=== PATIENT | male | born 1935 | race Hispanic/Latino ===

== ENCOUNTER 2016-12-13 00:19 | Emergency (ER) | payer MEDICARE, OTHER ==
[~2016-12-13] VITALS: Ht 185.4 cm; Wt 82.0 kg
[2016-12-13 01:57] LABS: URINE BILIRUBIN - DIPSTICK NEGATIVE (NEGATIVE); URINE BLOOD DIPSTICK TRACE-INTACT (NEGATIVE); URINE CLARITY CLEAR; URINE COLOR YELLOW; URINE GLUCOSE - DIPSTICK NEGATIVE (NEGATIVE); URINE KETONE NEGATIVE (NEGATIVE); URINE LEUK ESTERASE NEGATIVE (NEGATIVE); URINE NITRITE - DIPSTICK NEGATIVE (Negative); URINE PROTEIN - DIPSTICK NEGATIVE (NEG-TRACE); URINE SPECIFIC GRAVITY <=1.005; URINE UROBILINOGEN - DIPSTICK 0.2 E.U./dL (0.2)
[2016-12-13 03:59] VITALS: BP 128/76
== END 2016-12-13 03:53 | disposition short-term general hospital (02) ==
LOC: ED 00:19
PROVIDERS: Emergency Medicine
PROC: 0HQ0XZZ Repair Scalp Skin, External Approach (ICD-10-PCS; principal; 2016-12-13)
DX: S06.5X0A Traumatic subdural hemorrhage without loss of consciousness, initial encounter (principal); S01.01XA Laceration without foreign body of scalp, initial encounter; W01.198A Fall on same level from slipping, tripping and stumbling with subsequent striking against other object, initial encounter; Y92.143 Cell of prison as the place of occurrence of the external cause

== ENCOUNTER 2018-10-01 03:53 | Inpatient (IN) | payer MEDICARE ==
[~2018-10-01] VITALS: Ht 185.4 cm; Wt 75.0 kg
[2018-10-01] VITALS (15 sets, daily range): BP systolic 133–163; BP diastolic 54–87
--- NOTE | 2018-10-01 04:00 | NUR ---
PT. TO ROOM 6 WITH C/O SOB THAT STARTED AT APPROX. 0200. O2 SAT ON RA 66%. SKIN DIAPHORETIC RESP. 36. HR 144. BP 225/123. MD AT BEDSIDE. BILATERAL LUNG BAEZA ARE RALES AND RHONCHI. 0405 RESP. THERAPIST AT BEDSIDE BI-PAP INITIATED. O2 SAT NOW INCREASING TO 95%. PT. APPEARS LESS ANXIOUS.
[2018-10-01 04:30] LABS: HEMOGLOBIN 17.1 g/dl (14.0-18.0); IMMATURE GRANULOCYTES 0.3 % (0.0-5.0); MEAN CORPUSCULAR HGB 31.3 pG CALC (26.0-32.0); MEAN CORPUSCULAR HGB CONC 33.5 g/L CALC (32.0-36.0); NEUT# 6.63 thou/uL (1.82-7.42); RED BLOOD COUNT 5.47 mill/uL (4.70-6.10); RED CELL DISTRI WIDTH 13.9 % (11.5-15.5)
[2018-10-01 04:35] LABS: MEAN CELL VOLUME 93.2 fL CALC (80.0-100.0)
[2018-10-01 04:37] LABS: ALBUMIN 4.4 g/dL (3.2-5.0); BILIRUBIN, TOTAL 0.8 mg/dL (0.0-1.4); CREATININE 1.4 mg/dL (0.7-1.3); POTASSIUM 3.8 mmol/l (3.5-5.1)
[2018-10-01 04:41] LABS: PROTHROMBIN TIME 10.3 SECONDS (9.0-12.5)
--- NOTE | 2018-10-01 05:00 | NUR ---
PT. STATES, " I AM FEELING MUCH BETTER NOW."
[2018-10-01 05:17] LABS: URINE BILIRUBIN - DIPSTICK NEGATIVE (NEGATIVE); URINE BLOOD DIPSTICK TRACE-LYSED (NEGATIVE); URINE COLOR YELLOW; URINE GLUCOSE - DIPSTICK NEGATIVE (NEGATIVE); URINE KETONE NEGATIVE (NEGATIVE); URINE LEUK ESTERASE NEGATIVE (NEGATIVE); URINE NITRITE - DIPSTICK NEGATIVE (Negative); URINE PH 5.5 (4.5-8.0); URINE PROTEIN - DIPSTICK 30 mg/dL (NEG-TRACE); URINE SPECIFIC GRAVITY >=1.030; URINE UROBILINOGEN - DIPSTICK 0.2 E.U./dL (0.2)
--- NOTE | 2018-10-01 05:24 | NUR ---
IV ABT. STARTED PER MD ORDER.
[2018-10-01 05:29] LABS: URINE BACTERIA FEW hpf; URINE COARSE GRANULAR CAST FEW lpf; URINE HYALINE CAST FEW lpf (NONE-RARE); URINE SQUAMOUS EPITHELIAL CELL FEW EPI/hpf (0-FEW)
--- NOTE | 2018-10-01 05:32 | NUR ---
SNACK STEWARD SHOWS 8 BEAT MD NAIMA AWARE.
--- NOTE | 2018-10-01 06:23 | NUR ---
MD IN ROOM TO DISCUSS CLINICAL FINDINGS WITH PT. AND TO ALSO INFORM HIM OF ADMISSION, VERBALIZED UNDERSTANDING.
--- NOTE | 2018-10-01 06:30 | NUR ---
BP 92/52 MD AWARE, BP RECHECKED 89/56. MD ORDERED NITRPASTE REMOVED, AND PIBAP REMOVED. PT. PLACED IN [place]. BP RECHECKED 128/60.
--- NOTE | 2018-10-01 06:57 | NUR ---
Admission Note Report Given to: JULIA COMBS Transported by: Wheelchair X Stretcher Transported with: X Nurse Transporter X Patent IV X O2 X Events Intern
--- NOTE | 2018-10-01 07:02 | NUR ---
OBRIEN CATH EMPTIED FOR 300 ML CLEAR MOISES URINE.
--- NOTE | 2018-10-01 07:15 | NUR ---
Admission Note Report Given to: JULIA Transported by: Wheelchair X Stretcher Transported with: X Nurse Transporter X Patent IV X O2 X Employment Programs Analyst CARE ASSUMED FOR TRANSPORT, BELONGINGS SENT TO ICU WITH PATIENT. PATIENT IN STABLE CONDITION, CARE RELINQUISHED.
--- NOTE | 2018-10-01 07:20 | NUR ---
PT ARRIVED TO ICU 5 ON TELE & O2. PT ABLE TO AMBULATE UNASSISTED TO NEW BED. DENIES PAIN. STATES HE "THOUGHT HE WAS JUST CATCHING A COLD".
--- NOTE | 2018-10-01 07:30 | NUR ---
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 STATES HE THOUGHT HE WAS JUST COMING DOWN WITH A COLD. DENIES PAIN. DENIES SOB. DOES NOT HAVE AN ADVANCE DIRECTIVE AND DOES NOT WANT INFO ON ONE. NO HX OF BLOOD TRANSFUSION. 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 HIS FATHER HAD COLON CANCER. PT REFUSES FLU & PNA VACCINE AFTER A HORRIBLE REACTION WHILE IN THE [employer]. HE DRINKS 1-2 BEERS/DAY, DOES NOT SMOKE OR USE RECREATIONAL DRUGS, NO HEARING AIDS, WEARS UPPER/LOWER DENTURES. LAST BM WAS YESTERDAY AM, LARGE/FORMED/BROWN. NO TROUBLE URINATING. ARRIVED WITH CLEAR YELLOW URINE DRAINING INTO CATH OBRIEN. NO RECENT FALLS. PT LIVES ALONE & FEELS SAFE, DRIVES HIMSELF. 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 PRIMARY LANGUAGE IS PALESTINIAN. PT TRANSPORTS EXPENSIVE CARS FOR A LIVING- IS DUE IN [place] ON WEDNESDAY. BREATHING EVEN/UNLABORED, LUNG SOUNDS DIMINISHED THROUGHOUT. 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 NSR ON TELE. NO EDEMA. STRONG PULSES x4. GOOD CAP REFILL. PT IS A&Ox4 & COOPERATIVE/FRIENDLY WITH STAFF. SKIN WARM/DRY/PINK. WET MUCOS MEMBRANES. MITCHELL. SECURITY CHECKER STRONG. EYES PERRLA @3. ABD SOFT/NONTENDER, ACTIVE BS.
--- NOTE | 2018-10-01 08:00 | NUR ---
PT SITTING UP IN BED, EATING BREAKFAST.
--- NOTE | 2018-10-01 09:22 | NUR ---
NONSKID SOCKS GIVEN TO PT. PT GIVEN PITCHER OF WATER. CALLBELL IN HANDS, PT SITTING UP IN BED, WATCHING TV.
--- NOTE | 2018-10-01 10:17 | NUR ---
DR CALDWELL @BEDSIDE, ASSESSING PT.
--- NOTE | 2018-10-01 10:27 | NUR ---
PT DENIES PAIN BUT MOANS/GROANS WHILE BEING REPOSITIONED DURING FREQUENT LINEN CHANGES D/T URINARY INCONTINENCE. SITTER @BEDSIDE.
--- NOTE | 2018-10-01 11:14 | NUR ---
PER MD ORDER, PT NPO. PITCHER OF WATER REMOVED. PT AWARE.
--- NOTE | 2018-10-01 12:39 | NUR ---
VISITOR @BEDSIDE. PT APPEARS TO BE IN NO DISTRESS. WILL CONTINUE TO MONITOR. LUNCH TRAY HELD UNTIL AFTER U/S COMPLETED.
--- NOTE | 2018-10-01 13:00 | NUR ---
PT OFF UNIT FOR U/S & CATSCAN
--- NOTE | 2018-10-01 13:47 | NUR ---
PT RETURNED FROM RADIOLOGY. ON MONITORS, EATING LUNCH.
--- NOTE | 2018-10-01 14:11 | NUR ---
EX- & 2 GRANDSONS @BEDSIDE. PT LAUGHING/JOKING/TALKING. NO S/S OF DISTRESS. DENIES SOB. DENIES PAIN. CALLBELL W/IN REACH. WILL CONTINUE TO MONITOR.
--- NOTE | 2018-10-01 15:51 | NUR ---
LAB @BEDSIDE FOR TROPONIN DRAW- PER DR CALDWELL REQUEST.
--- NOTE | 2018-10-01 16:18 | NUR ---
GRETCHEN, EX , CALLED TO ASK EXACTLY WHAT TESTS PT HAD TODAY AND WHAT THE RESULTS WERE. ASSURED GRETCHEN THAT PT IS A&O AND AWARE OF POC.
--- NOTE | 2018-10-01 16:32 | NUR ---
CRITICAL TROPONIN RESULTS GIVEN TO DR CALDWELL. NO ORDERS AT THIS TIME.
--- NOTE | 2018-10-01 16:53 | NUR ---
DR CALDWELL @BEDSIDE WITH PT DISCUSSING TEST RESULTS & POC
--- NOTE | 2018-10-01 16:54 | NUR ---
PT PLACED NPO PER DR CALDWELL FOR TRANSFER TO [facility] ART INSTRUCTOR.
--- NOTE | 2018-10-01 17:25 | NUR ---
GIRLFRIEND SITTING AT BEDSIDE. UPDATED ON PTS STATUS. STATES PT DRINKS 5-6 LANDSHARKS AT NIGHT (NOT 1-2). GIRLFRIEND TEACHES ADVANCED BIOLOGY "SO SHE UNDERSTANDS MEDICAL TERMINOLOGY". PT & GIRLFRIEND AWARE OF TRANSFER TO [facility] AND AWARE WE ARE WAITING ON A ROOM ASSIGNMENT BEFORE WE CAN ARRANGE TRANSPORTATION WHICH CAN TAKE MANY HOURS. TROPONIN & LACTIC ACID RESULTS WRITTEN ON COMMUNICATION BOARD IN ROOM. NO MORE QUESTIONS AT THIS TIME. PT STILL DENIES SOB & PAIN. STATES HE IS FEELING BETTER AND READY TO GO HOME. NEW IV PLACED IN LAC. FLUIDS PLACED IN ROOM, IF NEEDED.
--- NOTE | 2018-10-01 18:04 | NUR ---
ROLANDO ASSIGNED PT TO [facility] ROOM 789A. SPOKE WITH LIZA AT [facility], TRANSPORTATION ETA 2-2.5 HOURS. CALL REPORT TO [phone]
--- NOTE | 2018-10-01 18:16 | NUR ---
PT GIVEN TRANSFER INFORMATION, INCLUDING TIMES & ROOM ASSIGNMENT
--- NOTE | 2018-10-01 18:50 | NUR ---
REPORT FROM Mckayla ZAIDI RN. ASSUMED PT. CARE.
--- NOTE | 2018-10-01 19:30 | NUR ---
PT. FOUND AWAKE, ALERT, ORIENTED X 3. NO DISTRESS. RESPS EVEN AND UNLABORED. SKIN WARM AND DRY. TEMP NOW 99.3. PT. DENIES COMPLAINTS OF CP/SOB OR OTHER ANGINAL EQUIVALENT. RESPS EVEN AND UNLABORED. CRACKLES NOTED TO RT. BASE. CLEAR OTHERWISE UPON AUSCULTATION. NO EDEMA NOTED. DISTIL PULSES INTACT THROUGHOUT. PT. REPORTS BM YESTERDAY LOOSE, NORMAL FOR HIM. CALL LIGHT WITHIN REACH. WILL CONTINUE TO MONITOR.
--- NOTE | 2018-10-01 19:45 | NUR ---
PT. AND SIG OTHER UPDATED ON PLAN OF CARE AND ALL QUESTIONS ANSWERED TO PATIENT SATISFACTION. CALL LIGHT REMAINS WITHIN REACH. WILL CONTINUE TO MONITOR.
--- NOTE | 2018-10-01 20:05 | NUR ---
[facility] AT BEDSIDE AT THIS TIME TO TRANSPORT PT. TO [facility].
--- NOTE | 2018-10-01 20:34 | NUR ---
REPORT CALLED TO JOSEFA LEE RN AT [facility].
== END 2018-10-01 20:15 | disposition short-term general hospital (02) | DRG 281 ==
LOC: ED 03:53 → ED-I 06:05 → ED 06:13 → ICU 06:23
PROVIDERS: Emergency Medicine; ADMIT Internal Medicine Nephrology; ATTEND Internal Medicine Nephrology
PROC: 5A09357 Assistance with Respiratory Ventilation, Less than 24 Consecutive Hours, Continuous Positive Airway Pressure (ICD-10-PCS; principal; 2018-10-01)
PROC: 0T9B70Z Drainage of Bladder with Drainage Device, Via Natural or Artificial Opening (ICD-10-PCS; 2018-10-01)
DX: I21.4 Non-ST elevation (NSTEMI) myocardial infarction (principal); I16.1 Hypertensive emergency; I47.2 Ventricular tachycardia; I50.1 Left ventricular failure, unspecified; I11.0 Hypertensive heart disease with heart failure; I51.7 Cardiomegaly; D72.829 Elevated white blood cell count, unspecified; Z86.79 Personal history of other diseases of the circulatory system; T46.5X6A Underdosing of other antihypertensive drugs, initial encounter; Z91.128 Patient's intentional underdosing of medication regimen for other reason
CPT/HCPCS: J1650

== ENCOUNTER 2020-03-20 11:47 | Inpatient (IN) | payer MEDICARE ==
[~2020-03-20] VITALS: Ht 185.4 cm; Wt 100.4 kg
--- NOTE | 2020-03-20 11:47 | NUR ---
pt amb to room in no distress
[2020-03-20] MEDS ORDERED: LISINOPRIL10 M1 PO (12:41)
[2020-03-20] MEDS ORDERED: ALDACTONE25 MG PO (12:42)
[2020-03-20] MEDS ORDERED: ELIQUIS5 MG PO (12:43)
--- NOTE | 2020-03-20 12:45 | NUR ---
PATIENT RESTING AWAITNG LAB AMD RADIOLOGY RESULTS. PATIENT STATES PAIN 3 ON 0-10 SCALE
[2020-03-20 12:48] LABS: IMMATURE GRANULOCYTES 0.5 % (0.0-5.0); MEAN CELL VOLUME 89.7 fL CALC (80.0-100.0); MEAN CORPUSCULAR HGB 30.1 pG CALC (26.0-32.0); MEAN CORPUSCULAR HGB CONC 33.6 g/dL CAL (32.0-36.0); NEUT# 13.84 thou/uL (1.82-7.42); RED BLOOD COUNT 4.78 mill/uL (4.70-6.10); RED CELL DISTRI WIDTH 13.2 % (11.5-15.5)
[2020-03-20 12:49] LABS: HEMATOCRIT 42.9 % (39.0-50.0); HEMOGLOBIN 14.4 g/dl (14.0-18.0)
[2020-03-20 13:24] LABS: ALBUMIN 4.4 g/dL (3.2-5.0); ALKALINE PHOSPHATASE 85 u/l (38-126); ANION GAP 15 (6-22 (CALC)); BILIRUBIN, TOTAL 1.3 mg/dL (0.0-1.4); BUN 15 mg/dL (8-23); BUN/CREATININE RATIO 16 (12-20 (CALC)); CARBON DIOXIDE 21 mmol/l (22-30); CHLORIDE 98 mmol/l (95-108); CREATININE 0.9 mg/dL (0.7-1.3); GFR > 60 ML/MIN (>=60 (CALC)); GFR FOR AFR.AMER. > 60 ML/MIN (>=60 (CALC)); LIPASE 21 u/l (23-300); POTASSIUM 4.1 mmol/l (3.5-5.1); SGOT/AST 25 u/l (19-48); SODIUM 130 mmol/l (137-146); TOTAL PROTEIN 7.5 g/dL (6.3-8.2)
--- NOTE | 2020-03-20 13:45 | NUR ---
PATIENT RESTING AWAITNG LAB AND RADIOLOGY RESULTS PATIENT STATES PAIN 3 ON 0-10 SCALE
[2020-03-20 14:29] LABS: URINE BILIRUBIN - DIPSTICK NEGATIVE (NEGATIVE); URINE BLOOD DIPSTICK LARGE (NEGATIVE); URINE COLOR YELLOW; URINE GLUCOSE - DIPSTICK NEGATIVE (NEGATIVE); URINE KETONE TRACE mg/dL (NEGATIVE); URINE LEUK ESTERASE NEGATIVE (NEGATIVE); URINE NITRITE - DIPSTICK NEGATIVE (Negative); URINE PROTEIN - DIPSTICK 100 mg/dL (NEG-TRACE); URINE SPECIFIC GRAVITY >=1.030; URINE UROBILINOGEN - DIPSTICK 0.2 E.U./dL (0.2)
--- NOTE | 2020-03-20 14:45 | NUR ---
PATIENT RESTING AWAITING LAB AND RADIOLOGY RESULTS PATIENT STATES PAIN 3 ON 0-10 SCALE
[2020-03-20 14:51] LABS: URINE WBC 0-2 WBC/hpf (0-5)
--- NOTE | 2020-03-20 15:45 | NUR ---
PATIENT RESTING AWAITING LAB AND RADIOLOGY RESULTS PATIENT STATES PAIN 4 ON 0-10 SCALE
--- NOTE | 2020-03-20 16:45 | NUR ---
PATIENT RESTING AWAITING RADIOLOGY RESULTS PATINET STATES PAIN 6 ON 0-10 SCALE MD NOTIFID
--- NOTE | 2020-03-20 17:12 | NUR ---
PATIENT RESTING AWAITNG ROOM ASSIGNMENT PATIENT STATES PAIN 3 ON 0-10 SCALE
--- NOTE | 2020-03-20 17:51 | NUR ---
PATIENT REPORT GIVEN TO DUSTY SALDIVARNG ON ROOM TO BE CLEANED
--- NOTE | 2020-03-20 20:06 | NUR ---
The patient si waiting for a room on the floor.
--- NOTE | 2020-03-20 20:23 | NUR ---
1700 med not given, manager shift came in at 1900.
--- NOTE | 2020-03-20 20:34 | NUR ---
PT ARRIVED TO FLOOR VIA WHEELCHAIR. NO APPARENT DISTRESS NOTED. PT ALERT AND ORIENTED X3. AMBULATED WITH STEADY GAIT FROM CHAIR TO BED. PT C/O MILD DISCOMFORT TO BACK FROM STRETCHER IN ER. WILL MEDICATED WITH PRN APAP. DISCUSSED POC AND PT ORIENTED TO ROOM AND CALL LIGHT SYSTEM. PT VERBALIZED UNDERSTANDING. OVERHEAD CLEANER IN PLACE. IV SITE FLUSHED WELL, SITE APPEARS HEALTHY. CALL LIGHT WITHIN REACH. WILL CONTINUE TO MONITOR.
[2020-03-20 20:47] VITALS: BP 156/85
[2020-03-21 00:14] VITALS: BP 152/73
--- NOTE | 2020-03-21 00:24 | NUR ---
PT RESTING IN BED. NO APPARENT DISTRESS NOTED. IVF INFUSING WITHOUT DIFFICULTY. CALL LIGHT WITHIN REACH. WILL CONTINUE TO MONITOR.
--- NOTE | 2020-03-21 04:26 | NUR ---
PT RESTING IN BED WITH EYES CLOSED. PT WAKES EASILY. DENIES ANY PAIN OR DISCOMFORT. 350ML CLEAR MOISES URINE EMPTIED FROM URINAL. PT DENIES ANY CURRENT WANTS OR NEEDS. CALL LIGHT WITHIN REACH. WILL CONTINUE TO MONITOR.
[2020-03-21 05:29] VITALS: BP 150/81
[2020-03-21 06:06] LABS: HEMATOCRIT 45.1 % (39.0-50.0); IMMATURE GRANULOCYTES 1.2 % (0.0-5.0); MEAN CELL VOLUME 89.8 fL CALC (80.0-100.0); MEAN CORPUSCULAR HGB 29.9 pG CALC (26.0-32.0); MEAN CORPUSCULAR HGB CONC 33.3 g/dL CAL (32.0-36.0); NEUT# 17.61 thou/uL (1.82-7.42); RED BLOOD COUNT 5.02 mill/uL (4.70-6.10); RED CELL DISTRI WIDTH 13.2 % (11.5-15.5)
[2020-03-21 06:50] LABS: ALBUMIN 3.7 g/dL (3.2-5.0); ALKALINE PHOSPHATASE 81 u/l (38-126); ANION GAP 14 (6-22 (CALC)); BILIRUBIN, TOTAL 1.5 mg/dL (0.0-1.4); BUN 14 mg/dL (8-23); BUN/CREATININE RATIO 16 (12-20 (CALC)); CARBON DIOXIDE 23 mmol/l (22-30); CHLORIDE 96 mmol/l (95-108); CREATININE 0.9 mg/dL (0.7-1.3); GFR > 60 ML/MIN (>=60 (CALC)); GFR FOR AFR.AMER. > 60 ML/MIN (>=60 (CALC)); MAGNESIUM 1.6 mg/dL (1.6-2.3); POTASSIUM 4.1 mmol/l (3.5-5.1); SGOT/AST 30 u/l (19-48); SODIUM 129 mmol/l (137-146); TOTAL PROTEIN 6.6 g/dL (6.3-8.2)
--- NOTE | 2020-03-21 10:43 | NUR ---
PATIENT IS AWAKE, ORIENTED TO NAME, , PLACE. PT ABLE TO FOLLOW COMMANDS, ANSWER QUESTIONS. PT ON ROOM AIR SATS 98%, NO SHORTNESS OF BREATH. NURSING ASSESSMENT AND VITALS PERFORMED. IV INTACT AND FLSUHES PROPERLY. IV FLUIDS INFUSING PROPERLY. PT ON CLEAR LIQUID DIET, ONLY ABLE TO EAT SMALL PORTIONS AT A TIME. PAIN IS CONTROLED BY PRN MEDICATION. SELF REPSOITIONS. POC DISCUSSED CALL LIGHT WITHIN REACH.
[2020-03-21 11:30] VITALS: BP 136/67
--- NOTE | 2020-03-21 16:08 | NUR ---
PT LAYING IN BED RESTING, NO APPARENT DISTRESS, RESPIRATIONS REG & UNLABORED PT DENIES ANY OTHER NEEDS AT THIS TIME. ITEMS WITHIN REACH BED LOCKED IN LOW POSITION W/ BEDRAILS UP X2. CALL CARRIZALES WITHIN REACH, AGREES TO CALL PRN.
--- NOTE | 2020-03-21 19:02 | NUR ---
REPORT FROM DUSTY COMBS. PT NOTED RESTING IN BED. NO APPARENT DISTRESS NOTED. PT C/O MILD ABD DISCOMFORT. WILL MEDICATED ORDERED. IV SITE APPEARS HEALTHY WITH IV FLUIDS INFUSING. TELEMTRY MONITOR IN PLACE. DISCUSSED POC. PT VERBALIZED UNDERSTANDING. URINAL EMPTIED OF CLOUDY MOISES URINE. PT STATES ALONG WITH NO HAVING BM PRIOR TO ADMISSION HE HAD NOT VOIDED MUCH AT HOME SINCE Wednesday03/17/20. PT DENIES ANY STRAINING OR BURNING WITH URINATION AT THIS TIME. PT VOICED NO OTHER COMPLAINTS. CALL LIGHT WITHIN REACH. WILL CONTINUE TO MONITOR.
[2020-03-21 19:50] VITALS: BP 142/73
--- NOTE | 2020-03-21 20:19 | NUR ---
PT MEDICATED ORDERED. NO OTHER WANTS OR NEEDS NOTED. CALL LIGHT WITHIN REACH. WILL CONTINUE TO MONITOR.
[2020-03-22 00:15] VITALS: BP 109/51
--- NOTE | 2020-03-22 00:32 | NUR ---
PT RESTING IN BED. NO APPARENT DISTRESS NOTED. RESPIRATIONS EVEN AND UNLABORED. CALL LIGHT WITHIN REACH. WILL CONTINUE TO MONITOR.
[2020-03-22 03:42] VITALS: BP 154/66
[2020-03-22 04:33] LABS: HEMATOCRIT 42.1 % (39.0-50.0); HEMOGLOBIN 14.3 g/dl (14.0-18.0); MEAN CELL VOLUME 89.8 fL CALC (80.0-100.0); MEAN CORPUSCULAR HGB 30.5 pG CALC (26.0-32.0); RED BLOOD COUNT 4.69 mill/uL (4.70-6.10); RED CELL DISTRI WIDTH 13.3 % (11.5-15.5)
--- NOTE | 2020-03-22 04:38 | NUR ---
PT RESTING IN BED. NO APPARENT DISTRESS NOTED. RESPIRATIONS EVEN AND UNLABORED. CALL LIGHT WITHIN REACH. WILL CONTINUE TO MONITOR.
[2020-03-22 05:43] LABS: ALKALINE PHOSPHATASE 106 u/l (38-126); ANION GAP 11 (6-22 (CALC)); BILIRUBIN, TOTAL 1.3 mg/dL (0.0-1.4); BUN 22 mg/dL (8-23); BUN/CREATININE RATIO 21 (12-20 (CALC)); CARBON DIOXIDE 25 mmol/l (22-30); CHLORIDE 97 mmol/l (95-108); GFR > 60 ML/MIN (>=60 (CALC)); GFR FOR AFR.AMER. > 60 ML/MIN (>=60 (CALC)); MAGNESIUM 1.8 mg/dL (1.6-2.3); POTASSIUM 3.8 mmol/l (3.5-5.1); SGOT/AST 30 u/l (19-48); SODIUM 129 mmol/l (137-146); TOTAL PROTEIN 5.8 g/dL (6.3-8.2)
[2020-03-22 08:00] VITALS: BP 127/64
--- NOTE | 2020-03-22 09:00 | NUR ---
PT SEEN RESTING IN THE BED, NO DISTRESS. DR RODRIGUEZ IN TO SEE PT, EXPLAINS PLAN TO HAVE SURGERY WEDNESDAY. PT CONTINUES WITH NUMBNESS TO RIGHT HAND/ARM AND LEFT DORSAL HAND.
--- NOTE | 2020-03-22 13:00 | NUR ---
PT AMBULATORY TO BR THIS AFTERNOON, STATES THAT HE HAD A LARGE BM AND FEELS BETTER. PT TOLERATING CLEAR LIQUID DIET.
[2020-03-22 15:10] VITALS: BP 123/51
--- NOTE | 2020-03-22 17:08 | NUR ---
PT AWARE OF PLAN FOR WEDNESDAY SURGERY. NO COMPLAINTS, NO DISTRESS, BEFORE.
[2020-03-22 19:00] VITALS: BP 97/50
--- NOTE | 2020-03-22 20:18 | NUR ---
PT MEDICATED W/IV ANTIBIOTIC THERAPY. PT SLEEPING, RETURNED TO SLEEP QUICKLY AFTER HEARING MY VOICE. NO S/O DISTRESS NOTE.
--- NOTE | 2020-03-22 22:15 | NUR ---
PT MEDICATED ORDERS PROVIDE, IVF REPLENISHED AND IV ANTIBIOTIC THERAPY ADMINISTERED AT THIS TIME. NO S/O DISTRESS NOTED. PT ASSESSMENT COMPLETED AT THIS TIME ALSO. PT REMINDED OF CALL LIGHT AND ENCOURAGED TO CALL NEEDS ARISE.
[2020-03-22 23:58] VITALS: BP 124/41
--- NOTE | 2020-03-23 03:00 | NUR ---
PT SLEEPING AT THIS TIME. NO S/O DISTRESS NOTED. CALL LIGHT AT SIDE.
[2020-03-23 04:05] VITALS: BP 109/67
--- NOTE | 2020-03-23 05:38 | NUR ---
PT MEDICATED ORDERS PROVIDE, IV ANTIBIOTIC THERAPY ADMINISTERED AT THIS TIME. URINAL EMPTIED OF 200CC DARK MOISES URINE. ASSISTED PT W/PO FLUIDS, DENIES ANY OTHER NEEDS AT THIS TIME.
[2020-03-23 05:58] LABS: HEMATOCRIT 39.4 % (39.0-50.0); IMMATURE GRANULOCYTES 0.5 % (0.0-5.0); MEAN CELL VOLUME 90.4 fL CALC (80.0-100.0); MEAN CORPUSCULAR HGB 29.8 pG CALC (26.0-32.0); NEUT# 9.14 thou/uL (1.82-7.42); RED BLOOD COUNT 4.36 mill/uL (4.70-6.10); RED CELL DISTRI WIDTH 13.3 % (11.5-15.5)
[2020-03-23 06:16] LABS: ALBUMIN 2.7 g/dL (3.2-5.0); ALKALINE PHOSPHATASE 110 u/l (38-126); ANION GAP 10 (6-22 (CALC)); BUN 23 mg/dL (8-23); BUN/CREATININE RATIO 21 (12-20 (CALC)); CARBON DIOXIDE 23 mmol/l (22-30); CHLORIDE 100 mmol/l (95-108); CREATININE 1.1 mg/dL (0.7-1.3); GFR > 60 ML/MIN (>=60 (CALC)); GFR FOR AFR.AMER. > 60 ML/MIN (>=60 (CALC)); POTASSIUM 3.6 mmol/l (3.5-5.1); SGOT/AST 25 u/l (19-48); SODIUM 129 mmol/l (137-146); TOTAL PROTEIN 5.4 g/dL (6.3-8.2)
[2020-03-23 06:18] LABS: BILIRUBIN, TOTAL 0.7 mg/dL (0.0-1.4)
[2020-03-23 07:56] VITALS: BP 130/64
[2020-03-23 10:30] VITALS: BP 143/73
--- NOTE | 2020-03-23 14:21 | NUR ---
IN AND DISCONTINUED IV FLUIDS.
--- NOTE | 2020-03-23 14:28 | NUR ---
PATIENT ALERT AND ORIENTED, PATIENT STATED THAT HIS PAIN IS BETTER, BUT SOME TENDERNESS LUQ. L HAND HEPLOCK PULLED OUT. GAVE ORDER TO D/D IVF. PATIENT OUT OF BED TO CHAIR
[2020-03-23 15:00] VITALS: BP 105/66
--- NOTE | 2020-03-23 15:18 | NUR ---
REPORT WAS RECEIVED FROM SHAUN. PT IS RESTING IN BED WITH NO S/S OF DISTRESS NOTED. DIRECTOR AGRICULTURAL SERVICES IS GOING TO SETUP PT FOR A SHOWER. PT DENIES PAIN AT THIS TIME. CALL LIGHT IN REACH.
[2020-03-23 20:34] VITALS: BP 107/49
--- NOTE | 2020-03-23 21:01 | NUR ---
PT MEDICATED AND ASSESSMENT COMPLETED AT THIS TIME. NO S/O DISTRESS NOTED. POC AND MEDICATION SCHEDULE REVIEWED WITH PT AND DUE TO SOUNDS OF CONCERNS AND QUESTIONS I EDUCATED HIM ON HIS PT RIGHTS REGARDING ANY TREATMENT OR MEDICATIONS (R/T REFUSE). HE DID NOT, BUT DID WANT TO KNOW WHEN AND WHAT HE WAS GOING TO GET OVER THE WEEKEND. THIS INFORMATION WAS REVIEWED ORDERS SHOW AT THIS TIME. PT APPEARS IN GOOD SPIRITS, TALKING ABOUT HIS DAY, BUT DID ASK FOR DOOR TO BE CLOSED AND EXPRESSED THE DESIRE FOR MINIMAL INTERUPTIONS THROUGHOUT THE NIGHT. I REVIEWED OUR TREATMENT SCHEDULE AND V/S ASSESSMENT SCHEDULE WITH HIM, HE VERBALIZED UNDERSTANDING.
[2020-03-23 23:43] VITALS: BP 125/84
[2020-03-24 04:54] VITALS: BP 131/59
--- NOTE | 2020-03-24 05:04 | NUR ---
PT MEDICATED ORDERS PROVIDE. NO S/O DISTRESS NOTED. CALL LIGHT AT SIDE, PT ENCOURAGED TO CALL.
[2020-03-24 05:25] LABS: HEMATOCRIT 38.7 % (39.0-50.0); HEMOGLOBIN 12.8 g/dl (14.0-18.0); IMMATURE GRANULOCYTES 0.5 % (0.0-5.0); MEAN CELL VOLUME 90.4 fL CALC (80.0-100.0); MEAN CORPUSCULAR HGB 29.9 pG CALC (26.0-32.0); MEAN CORPUSCULAR HGB CONC 33.1 g/dL CAL (32.0-36.0); NEUT# 7.92 thou/uL (1.82-7.42); RED BLOOD COUNT 4.28 mill/uL (4.70-6.10); RED CELL DISTRI WIDTH 13.3 % (11.5-15.5)
[2020-03-24 05:52] LABS: ALBUMIN 2.9 g/dL (3.2-5.0); ALKALINE PHOSPHATASE 137 u/l (38-126); ANION GAP 10 (6-22 (CALC)); BILIRUBIN, TOTAL 0.7 mg/dL (0.0-1.4); BUN 20 mg/dL (8-23); BUN/CREATININE RATIO 20 (12-20 (CALC)); CARBON DIOXIDE 26 mmol/l (22-30); CHLORIDE 100 mmol/l (95-108); GFR > 60 ML/MIN (>=60 (CALC)); GFR FOR AFR.AMER. > 60 ML/MIN (>=60 (CALC)); POTASSIUM 3.8 mmol/l (3.5-5.1); SGOT/AST 38 u/l (19-48); SODIUM 132 mmol/l (137-146); TOTAL PROTEIN 5.6 g/dL (6.3-8.2)
--- NOTE | 2020-03-24 07:05 | NUR ---
REPORT RECEIVED FROM LAURYN MAYEN;PT APPEARS TO BE SLEEPING IN SUPINE POSITION;RESPIRATIONS APPEAR EVEN AND UNLABORED ON RA;NO S/S OF DISTRESS NOTED;TELE MONITORING IN PLACE;ALL SAFETY PRECAUTIONS NOTED WITH BED IN THE LOWEST POSITION AND CALL LIGHT IN REACH;WILL CONTINUE TO MONITOR
[2020-03-24 08:23] VITALS: BP 145/69
--- NOTE | 2020-03-24 08:25 | NUR ---
PT RESTING IN SEMI FOWLERS POSITION,A&O X3;VS OBTAINED AND ASSESSMENT COMPLETED;PT DENIES ANY CURRENT PAIN BUT DOES REPORT RUQ TENDERNESS/DISCOMFORT,PT DENIES THE NEED FOR PAIN MEDICATION AT THIS TIME;PAIN SCALE AND REPORTING EDUCATED;RESPIRATIONS EVEN AND UNLABORED ON RA,CLEAR LUNG SOUNDS;ABDOMEN DISTENDED/SOFT ON PALPATION AND ACTIVE IN ALL 4 QUADRANTS,MOM PROVIDED TO ASSIST IN BOWEL CARE;STRONG PEDAL PULSES;SKIN INTACT;TELE MONITORING IN PLACE;#24G TO LEFT HAND FLUSHED AND PATENT,ABX STARTED AT THIS TIME PER ORDER;CLEAR LIQUID DIET REINFORCED;PT DENIES ANY ADDITIONAL NEEDS AT THIS TIME AND IS ENCOURAGED TO CALL FOR ASSISTANCE IF NEEDED;FALL PRECAUTIONS IN PLACE WITH BED IN THE LOWEST POSITION AND CALL IGHT IN REACH;WILL CONTINUE TO MONITOR
--- NOTE | 2020-03-24 08:47 | NUR ---
INFORMED CONSENT OBTAINED AT THIS TIME FOR LAPROSCOPIC CHOLECYSTECTOMY WITH CHOLANGIOGRAM;ALL RISKS AND BENEFITS DISCUSSED, QUESTIONS ANSWERED;PT DENIES ANY ADDITIONAL QUESTIONS OR NEEDS;WILL CONTINUE TO MONITOR
--- NOTE | 2020-03-24 09:41 | NUR ---
AT BEDSIDE DISCUSSING POC WITH PT INCLUDING PLANS FOR LAP ABHISHEK 03/25/20.
--- NOTE | 2020-03-24 09:59 | NUR ---
ANESTHESIA AT BEDSIDE
[2020-03-24 10:30] VITALS: BP 124/69
--- NOTE | 2020-03-24 11:40 | NUR ---
PT RESTING IN SUPINE POSITION;RESPIRATIONS EVEN AND UNLABORED ON RA;PT DENIES ANY CURRENT PAIN OR NEEDS;IV SITE PATENT;TELE MONITORING IN PLACE;URINAL EMPTIED OF 210CC OF YELLOW URINE;MEAL TRAY PROVIDED;PT DENIES ANY ADDITIONAL NEEDS AT THIS TIME AND IS ENCOURAGED TO CALL FOR ASSISTANCE IF NEEDED;ASSESSMENT REMAINS UNCHANGED;CALL LIGHT IN REACH;WILL CONTINUE TO MONITOR
[2020-03-24 15:00] VITALS: BP 142/73
--- NOTE | 2020-03-24 15:35 | NUR ---
PT APPEARS TO BE SLEEPING IN SUPINE POSITION;RESPIRATIONS EVEN AND UNLABORED ON RA;NO S/S OF DISTRESS NOTED;TELE MONITORING IN PLACE;IV SITE PATENT;ALL SAFETY PRECAUTIONS REMAIN IN PLACE WITH BED IN THE LOWEST POSITION AND CALL LIGHT IN REACH;FREQUENT ROUNDS MADE;WILL CONTINUE TO MONITOR
[2020-03-24 18:55] VITALS: BP 113/55
--- NOTE | 2020-03-24 21:29 | NUR ---
PT MEDICATED AND ASSESSMENT COMPLETED AT THIS TIME. NO S/O DISTRESS. PT UP TO RESTROOM AND BACK TO BED WHILE I WAS IN THE ROOM. PLAN OF CARE DISCUSSED AND PT REMINDED OF BEING NPO AFTER MIDNIGHT HE VERBALIZED UNDERSTANDING. IV ANTIBIOTIC THERAPY ADMINISTERED AT THIS TIME.
[2020-03-24 23:36] VITALS: BP 130/68
--- NOTE | 2020-03-24 23:42 | NUR ---
PT IV ANTIBIOTIC THERAPY COMPLETED AT THIS TIME. IV FLUSHED/SITE APPEARS HEALTHY. PT REMINDED THAT HE IS NOW NPO AND PROVIDED LAST PO FLUIDS. FLUIDS REMOVED FROM BEDSIDE PRIOR TO LEAVING ROOM AND SIGN ADDED TO DOOR FOR NPO.
[2020-03-25] VITALS (11 sets, daily range): BP systolic 120–172; BP diastolic 55–83
[2020-03-25 04:47] LABS: HEMATOCRIT 37.2 % (39.0-50.0); HEMOGLOBIN 12.4 g/dl (14.0-18.0); IMMATURE GRANULOCYTES 0.7 % (0.0-5.0); MEAN CELL VOLUME 89.9 fL CALC (80.0-100.0); MEAN CORPUSCULAR HGB CONC 33.3 g/dL CAL (32.0-36.0); NEUT# 5.65 thou/uL (1.82-7.42); RED BLOOD COUNT 4.14 mill/uL (4.70-6.10); RED CELL DISTRI WIDTH 13.3 % (11.5-15.5)
[2020-03-25 05:08] LABS: ALBUMIN 2.7 g/dL (3.2-5.0); ALKALINE PHOSPHATASE 122 u/l (38-126); ANION GAP 8 (6-22 (CALC)); BILIRUBIN, TOTAL 0.5 mg/dL (0.0-1.4); BUN 16 mg/dL (8-23); BUN/CREATININE RATIO 17 (12-20 (CALC)); CARBON DIOXIDE 26 mmol/l (22-30); CHLORIDE 103 mmol/l (95-108); CREATININE 0.9 mg/dL (0.7-1.3); GFR > 60 ML/MIN (>=60 (CALC)); GFR FOR AFR.AMER. > 60 ML/MIN (>=60 (CALC)); POTASSIUM 3.3 mmol/l (3.5-5.1); SGOT/AST 65 u/l (19-48); SODIUM 133 mmol/l (137-146); TOTAL PROTEIN 5.3 g/dL (6.3-8.2)
--- NOTE | 2020-03-25 05:27 | NUR ---
PT MEDICATED ORDERS PROVIDE. NO S/O DISTRESS NOTED. PT DENIES ANY NEEDS AT THIS TIME. CALL LIGHT AT SIDE.
--- NOTE | 2020-03-25 07:05 | NUR ---
REPORT RECEIVED FROM LAURYN MAYEN;PT BEING TRANSPORTED TO OR AT THIS TIME VIA STRETCHER IN STABLE CONDITION ACCOMPANIED BY X2 OR STAFF MEMBERS.
--- NOTE | 2020-03-25 10:45 | NUR ---
PT RETURNED TO MED/SURG ROOM 279 IN STABLE CONDITION VIA HOSPITAL BED ACCOMPANIED BY TEGAN,RN AND JOSELINE,RN;BEDSIDE REPORT RECEIVED AT THIS TIME;VS OBTAINED AND ASSESSMENT COMPLETED;PT A&O X4,ORIENTED TO ROOM AND CALL LIGHT SYSTEM;PT POST OP JILLIAN COREYE 03/25/20 WITH ;PT DENIES ANY CURRENT PAIN AT THIS TIME,PAIN SCALE AND REPORTING EDUCATED;RESPIRATIONS EVEN AND UNLABORED ON RA,CLEAR LUNG SOUNDS;I.S. PROVIDED AND PT EDUCATED ON USE 10X PER HOUR,PT VERBALIZES UNDERSTANDING;ABDOMEN DISTENDED/SOFT ON PALPATION AND HYPOACTIVE IN ALL 4 QUADRANTS,RHINA DRAIN NOTED TO RUQ WITH MODERATE AMOUNT OF SANGUINEOUS DRAINAGE;X4 ABDOMINAL INCISIONS NOTED WITH DRESSINGS CDI;STRONG PEDAL PULSES;TELE MONITORING IN PLACE;#20G TO RH INFUSING LR @150 ML/HR,SITE APPEARS HEALTHY;SCD'S APPLIED AND ICE WATER PER REQUEST;PT DENIES ANY ADDITIONAL NEEDS AT THIS TIME AND STATES "I JUST WANNA SLEEP";PT ENCOURAGED TO CALL FOR ASSISTANCE IF NEEDED;FALL PRECAUTIONS IN PLACE WITH CALL LIGHT IN REACH;WILL CONTINUE TO MONITOR
--- NOTE | 2020-03-25 11:13 | NUR ---
ICE PACK APPLIED 20 MIN ON 20 MIN OFF TOLERATED DRY DRESSING CHANGE POD #2
--- NOTE | 2020-03-25 11:29 | NUR ---
STU ANRP AT BEDSIDE
--- NOTE | 2020-03-25 11:40 | NUR ---
PT RESTING IN SEMI FOWLERS POSITION WITH VISITOR AT BEDSIDE;RESPIRATIONS REMAIN EVEN AND UNLABORED ON RA;IV FLUIDS INFUSING WITH EASE TO RH;TELE MONITORING IN PLACE;CLEAR LIQUID MEAL TRAY PROVIDED;DRESSINGS TO ABD REMAIN CDI AND RHINA DRAIN PATENT;PT DENIES ANY ADDITIONAL NEEDS AT THIS TIME;ENCOURAGED TO CALL FOR ASSISTANCE IF NEEDED;CALL LIGHT IN REACH;WILL CONTINUE TO MONITOR
--- NOTE | 2020-03-25 13:10 | NUR ---
PT MEDICATED WITH PRN PERCOCET 5/325MG PO PER REQUEST FOR ABDOMINAL PAIN RATING 8/10 ON THE PAIN SCALE,WILL CONTINUE TO MONITOR
--- NOTE | 2020-03-25 15:40 | NUR ---
PT RESTING IN SEMI FOWLERS POSITION TALKING ON THE PHONE;RESPIRATIONS EVEN AND UNLABORED ON RA;PT DENIES ANY CURRENT PAIN OR NEEDS;TELE MONITORING IN PLACE;IV FLUIDS INFUSING WITH EASE TO RH;RHINA DRAIN EMPTIED OF 40CC OF BLOODY DRAINAGE;ABD DRESSINGS CDI;PT DENIES ANY ADDITIONAL NEEDS AT THIS TIME AND IS ENCOURAGED TO CALL FOR ASSISTANCE IF NEEDED;CALL LIGHT IN REACH;WILL CONTINUE TO MONITOR
--- NOTE | 2020-03-25 19:30 | NUR ---
RECEIVED REPORT FROM NURSE VANI, PATIENT CUURENTLY SIANDING FRONT OF THE CHAIR, TRYING TO VOID IN URINAL, BREATHING UNLABORED, CALL LIGHT AT REACH.
--- NOTE | 2020-03-25 21:00 | NUR ---
PATIENT ALERT ORINETED ABLE TO MAKE NEEDS KNONW, WITH ONGOING IV LR @ 150 CC/HR INFUSING WELL ON RT HAND, PAIN ON ABDOMEN PS 2/10, TOLERABLE, REMAINS ON TELE PACED 90 WITH PVC, LBM 03/24, DRESSING ON ABDOMEN CDI, RHINA DRAIN EMPTIED 25 CC SANGUINEOUS DRAINAGE, ABDOMINAL BINDER IN PLACE, INSTRUCTED ON THE USED OF INENTIVE SPIROMENTER, PATIENT ASSISTED TO GO BACK IN BED, PATIENT VOIDED EMPTIED 100CC MOISES COLORED URINE. CALL LIGHT AT REACH.
--- NOTE | 2020-03-26 00:12 | NUR ---
PATIENT APPEARS TO BE SLEEPING WITH EYES CLOSED, BREATHING EVEN UNLABORED, CALL LIGHT AT REACH.
--- NOTE | 2020-03-26 03:48 | NUR ---
PATIENT APPEARS TO BE SLEEPING WITH EYES CLOSED, BREATHING EVEN UNLABORED,NOT IN DISTRESS CALL LIGHT AT REACH.
[2020-03-26 04:00] VITALS: BP 155/70
[2020-03-26 05:39] LABS: HEMATOCRIT 33.2 % (39.0-50.0); HEMOGLOBIN 10.7 g/dl (14.0-18.0); MEAN CELL VOLUME 91.5 fL CALC (80.0-100.0); MEAN CORPUSCULAR HGB 29.5 pG CALC (26.0-32.0); MEAN CORPUSCULAR HGB CONC 32.2 g/dL CAL (32.0-36.0); RED BLOOD COUNT 3.63 mill/uL (4.70-6.10); RED CELL DISTRI WIDTH 13.5 % (11.5-15.5)
[2020-03-26 05:55] LABS: ALKALINE PHOSPHATASE 114 u/l (38-126); ANION GAP 11 (6-22 (CALC)); BILIRUBIN, TOTAL 0.3 mg/dL (0.0-1.4); BUN 14 mg/dL (8-23); BUN/CREATININE RATIO 16 (12-20 (CALC)); CARBON DIOXIDE 21 mmol/l (22-30); CHLORIDE 103 mmol/l (95-108); CREATININE 0.9 mg/dL (0.7-1.3); GFR > 60 ML/MIN (>=60 (CALC)); GFR FOR AFR.AMER. > 60 ML/MIN (>=60 (CALC)); MAGNESIUM 1.6 mg/dL (1.6-2.3); POTASSIUM 3.8 mmol/l (3.5-5.1); SGOT/AST 82 u/l (19-48); SODIUM 132 mmol/l (137-146); TOTAL PROTEIN 4.3 g/dL (6.3-8.2)
[2020-03-26 06:06] LABS: ALBUMIN 2.1 g/dL (3.2-5.0)
--- NOTE | 2020-03-26 07:05 | NUR ---
REPORT RECEIVED FROM LAURYN VALERA;PT APPEARS TO BE SLEEPING IN SEMI FOWLERS POSITION;NO S/S OF DISTRESS NOTED;RESPIRATIONS EVEN AND UNLABORED ON RA;TELE MONITORING IN PLACE;IV SITE PATENT INFUSING LR @ 150ML/HR PER ORDER;ALL SAFETY PRECAUTIONS IN PLACE WITH BED IN THE LOWEST POSITION AND CALL LIGHT IN REACH;WILL CONTINUE TO MONITOR
--- NOTE | 2020-03-26 08:35 | NUR ---
PT RESTING IN SEMI FOWLERS POSITION,A&O X4;VS OBTAINED AND ASSESSMENT COMPLETED;PT POD #1 LAP ABHISHEK 03/25/20;PT REPORTS ABDOMINAL PAIN RATING 7/10 ON THE PAIN SCALE AND REQUESTS PAIN MEDICATION,PT TO BE MEDICATED WITH PRN PERCOCET 5/325MG PO PER ORDER;RESPIRATIONS EVEN AND UNLABORED ON RA,CLEAR LUNG SOUNDS;I.S. PROVIDED AND PT DEMONSTARTED USE,ENCOURAGED USE 10X PER HOUR;ABDOMEN DISTENDED/SOFT ON PALPATION AND HYPOACTIVE IN ALL 4 QUADRANTS;X4 ABDOMINAL INCISIONS WELL APPROX WITH DRESSINGS CDI;RHINA DRAIN TO RUQ PATENT DRAINING MODERATE AMOUNT OF BLOODY FLUID;ABDOMINAL BINDER IN PLACE;WEAK PEDAL PULSES,SCD'S NOTED;TELE MONITORING IN PLACE;#20G TO RIGHT HAND INFUSING LR PER ORDER,SITE APPEARS HEALTHY AND ABX STARTED AT THIS TIME;PT DENIES ANY ADDITIONAL NEEDS AT THIS TIME AND IS ENCOURAGED TO CALL FOR ASSISTANCE IF NEEDED;FALL PRECAUTIONS IN PLACE WITH BED IN THE LOWEST POSITION AND CALL LIGHT IN REACH;WILL CONTINUE TO MONITOR
[2020-03-26 08:36] VITALS: BP 148/98
[2020-03-26 10:50] VITALS: BP 140/67
--- NOTE | 2020-03-26 10:50 | NUR ---
PT AMBULATED X2 HALLWAYS WITH A STEADY GAIT AND 1 PERSON ASSIST,PT TOLERATED WELL.
--- NOTE | 2020-03-26 11:35 | NUR ---
PT OOB RESTING IN RECLINER;RESPIRATIONS EVEN AND UNLABORED ON RA;PT REPORTS MINIMAL ABDOMINAL PAIN WITH MOVEMENT,DENIES THE NEED FOR PAIN MEDICATION AT THIS TIME;PAIN SCALE AND REPORTING EDUCATED;IV FLUIDS CONTINUE TO INFUSE TO RH WITH EASE PER ORDER;TELE MONITORING IN PLACE;DRESSING AND ABDOMINAL BINDER PATENT AND CDI;RHINA DRAIN EMPTIED OF 40CC OF BLOODY DRAINAGE;ASSESSMENT REMAINS UNCHANGED AT THIS TIME;PT ENCOURAGED TO CALL FOR ASSISTANCE IF NEEDED;CALL LIGHT IN REACH;WILL CONTINUE TO MONITOR
--- NOTE | 2020-03-26 15:40 | NUR ---
PT APPEARS TO BE SLEEPING IN SUPINE POSITION;NO S/S OF DISTRESS NOTED;RESPIRATIONS EVEN AND UNLABORED ON RA;TELE MONITORING IN PLACE;IV FLUIDS INFUSING WITH EASE PER ORDER;ALL SAFETY PRECAUTIONS IN PLACE WITH CALL LIGHT IN REACH;WILL CONTINUE TO MONITOR
[2020-03-26 15:50] VITALS: BP 152/68
[2020-03-26 18:50] VITALS: BP 148/64
--- NOTE | 2020-03-26 19:00 | NUR ---
RECEIVED REPORT FROM NURSE LUDWIG, PATIENT APPEARS TO BE SLEEPING WITH EYES CLOSED, BREATHING EVEN UNLABORED, CALL LIGHT AT REACH.
--- NOTE | 2020-03-26 20:00 | NUR ---
PATIENT ALERT ORIENTED ABLE TO MAKE NEEDS KNOWN, WITH ONGOING IV OF LR @ 75CC/HR INFUSING WELL ON THE RT HAND, REMAINS ON TEL PACED 76, WITH RHINA DRAIN EMPTIED 50 CC OF SEROUSANGUINEOUS FLUID, LBM 03/24, ABDOMINAL DRESSING CDI, BINDER IN PLACE. PATIENT ON SCD, EDUCATED ON THE USED OF SPIROMETER, CALL LIGHT AT REACH.
--- NOTE | 2020-03-26 22:00 | NUR ---
PATIENT C/O OF PAIN ON SX SITE, PRN PERCOCET GIEVEN WILL REEVALUATE.
[2020-03-27] VITALS: BP 169/89
--- NOTE | 2020-03-27 | NUR ---
PATIENT RESTING IN BED WITH EYES CLOSED, BREATHING EVEN UNLABORED, CALL LIGHT AT REACH.
[2020-03-27 03:25] VITALS: BP 143/79
--- NOTE | 2020-03-27 04:41 | NUR ---
PATIENT RESTING IN BED WITH EYES CLOSED, BREATHING UNLABORED, CALL LIGHT AT REACH.
[2020-03-27 05:13] LABS: HEMATOCRIT 36.1 % (39.0-50.0); MEAN CELL VOLUME 90.7 fL CALC (80.0-100.0); MEAN CORPUSCULAR HGB 30.2 pG CALC (26.0-32.0); MEAN CORPUSCULAR HGB CONC 33.2 g/dL CAL (32.0-36.0); RED BLOOD COUNT 3.98 mill/uL (4.70-6.10); RED CELL DISTRI WIDTH 13.5 % (11.5-15.5)
[2020-03-27 05:31] LABS: ANION GAP 9 (6-22 (CALC)); BUN 15 mg/dL (8-23); BUN/CREATININE RATIO 15 (12-20 (CALC)); CARBON DIOXIDE 24 mmol/l (22-30); CHLORIDE 106 mmol/l (95-108); GFR > 60 ML/MIN (>=60 (CALC)); GFR FOR AFR.AMER. > 60 ML/MIN (>=60 (CALC)); MAGNESIUM 1.8 mg/dL (1.6-2.3); POTASSIUM 3.7 mmol/l (3.5-5.1); SODIUM 135 mmol/l (137-146)
--- NOTE | 2020-03-27 06:01 | NUR ---
REMOVED ABDOMINAL DRESSING AT THIS TIME PER DR. CHERRY ORDER A TOTAL OF 14 WILL ON [address] OF RHINA DRAIN WAS ABLE TO REMOVED 80 CC OF SEROSANGUINEOUS FLUIDS, PATIENT TOLERATED PROCEDURE, BINDER IN PLACE.
--- NOTE | 2020-03-27 06:24 | NUR ---
PATIENT OFFERED MOM LBM 03/24, PATIENT REFUSED AT THIS TIME, STATED WILL TAKE LATER TODAY IF WITHOUT BM.
--- NOTE | 2020-03-27 08:00 | NUR ---
PT IA ALERT AND ORIENTED AND ABLE TO MAKE NEEDS KNOWN. SKIN WARM TO TOUCH. PT RESPIRATION ARE EVEN AND NON LABORED. NO COUGH OR CONGESTION NOTED. LUNG SOUNDS ARE CLEAR AND EQUAL. PT HAS BOWEL SOUNDS IN ALL QUADRANTS. UNABLE TO HAVE BOWEL MOVEMENT THIS AM. DECLINED MEDICATIONS OFFERED TO ASSIST WITH BOWEL MOVEMENT. REQUESTING TO DISCHARGE HOME TODAY. INCISION SITES ON ABDOMEN ARE WELL APPROXIMATED AND WILL ARE INTACT. PT ABDOMEN IS DISTENDED AND FIRM AND TENDER TO TOUCH. RHINA DRAIN EMPTIED AND EMPTIED 70ML OF BRIGH RED BLOOD. ABLE TO AMBULATE WITH NO COMPLICATIONS NOTED. MEDICATIONS GIVEN THIS AM AND TOLERATED WELL. CALL LIGHT IS WITHIN REACH. WILL CONTINUE TO OBSERVE
[2020-03-27 09:31] VITALS: BP 171/78
[2020-03-27] MEDS ORDERED: PERCOCET 5/325M1 TAB PO (10:15)
[2020-03-27] MEDS ORDERED: METRONIDAZOL500 MG PO (10:15)
[2020-03-27] MEDS ORDERED: CIPROFLOXACN500 MG PO (10:15)
[2020-03-27 10:30] VITALS: BP 146/72
--- NOTE | 2020-03-27 12:04 | NUR ---
PT TO BE DISCHARGED THIS AM. PT TEACHING DONE WITH PT ON DISCHARGE INSTRUCTIONS. SURGEON CONTACT INFORMATION WAS GIVEN TO PT. DISCUSSED DISCHARGED PRESCRIPTION AND DOSAGE, ROUT, FREQUENTION AND DURATION OF EACH PRESCRIOPTION AND PT STATES HE UNDERSTANDS. MADE AWARE TO CONTINUE HOME MEDS PRESCRIBED AND TALKED ABOUT CONTINUING DIET TOLERATED AT HOME. PT AWARE TO FOLLOW UP WITH MD IF ANY COMPLICATIONS SUCH INCREASED PAIN, FEVER, CHILLS ETC. PT STATES HE UNDERSTOOD. ALSO READ INSTRUCTIONS WITH THIS NURSE. RHINA DRAIN WAS REMOVED AND PT TOLERATED WELL. TIP INTACT AND BLOOD DRAINAGE NOTED. PRESSURE DRESSING APPLIED AND ABDOMINAL BINDER IN PLACE. [facility] PERTINET PAPERS SIGNED AND ALL BELONGING PACKED FOR THIS PT. iv WAS REMOVED AND TIP INTACT AND PT TOLERATED WELL.
--- NOTE | 2020-03-27 12:52 | NUR ---
PT TRANSFERRED TO VEHICLE VIA WHEELCHAIR. TEACHING DONE WITH SON REGARDING FOLLOWUP WITH PCP/SURGEON AND RHINA DRAIN SITE WELL STAPLE SITE/CARE. SON STATES HE UNDERSTANDS.
== END 2020-03-27 13:46 | disposition home or self-care (01) | DRG 419 ==
LOC: ED 11:47 → ED-I 15:50 → ED 16:12 → MS2 16:13 → ED-I 16:13 → MS2 17:53
PROVIDERS: Family Medicine; Nurse Practitioner; Physician Assistant; ADMIT Internal Medicine; ATTEND Internal Medicine
PROC: 0FT44ZZ Resection of Gallbladder, Percutaneous Endoscopic Approach (ICD-10-PCS; principal; 2020-03-25)
PROC: BF001ZZ Plain Radiography of Bile Ducts using Low Osmolar Contrast (ICD-10-PCS; 2020-03-25)
DX: K80.00 Calculus of gallbladder with acute cholecystitis without obstruction (principal); K82.A1 Gangrene of gallbladder in cholecystitis; I10 Essential (primary) hypertension; I25.10 Atherosclerotic heart disease of native coronary artery without angina pectoris; K59.00 Constipation, unspecified; E87.6 Hypokalemia; Z88.0 Allergy status to penicillin; Z79.01 Long term (current) use of anticoagulants; Z95.810 Presence of automatic (implantable) cardiac defibrillator; Z20.828 Contact with and (suspected) exposure to other viral communicable diseases
CPT/HCPCS: G0378; J0131; J2710; Q9967

== ENCOUNTER 2023-09-23 19:55 | Emergency (ER) | payer MEDICARE ==
[~2023-09-23] VITALS: Ht 185.4 cm; Wt 84.0 kg
[~2023-09-23 19:55] MED LIST: ALDACTONE25 MG PO; CIPROFLOXACN500 MG PO; ELIQUIS5 MG PO; LISINOPRIL10 M1 PO; METRONIDAZOL500 MG PO; PERCOCET 5/325M1 TAB PO
[2023-09-23] MEDS ORDERED: Diph, Acellular Pertussis, Tet 0.5 ML/VIAL (Tdap) SDV IM ONE (20:05)
[2023-09-23 20:18] LABS: BASO% 0.8 % (0-3); EOS% 3.3 % (0-8); IMMATURE GRANULOCYTES 0.1 % (0.0-5.0); LYMPH% 46.1 % (15-41); MEAN CELL VOLUME 94.3 fL CALC (80.0-100.0); MEAN CORPUSCULAR HGB 30.9 pG CALC (26.0-32.0); MEAN CORPUSCULAR HGB CONC 32.8 g/dL CAL (32.0-36.0); MONO% 7.5 % (2-13); NEUT# 3.16 thou/uL (1.82-7.42); NEUT% 42.2 % (42-76); RED BLOOD COUNT 4.88 mill/uL (4.70-6.10); RED CELL DISTRI WIDTH 14.3 % (11.5-15.5)
[2023-09-23 20:19] LABS: HEMOGLOBIN 15.1 g/dl (14.0-18.0)
[2023-09-23 20:31] VITALS: BP 133/72
[2023-09-23 20:32] LABS: ALKALINE PHOSPHATASE 77 u/l (38-126); ANION GAP 18 (6-22 (CALC)); BUN 15 mg/dL (8-23); BUN/CREATININE RATIO 12 (12-20 (CALC)); CARBON DIOXIDE 21 mmol/l (22-30); CHLORIDE 101 mmol/l (95-108); CREATININE 1.2 mg/dL (0.7-1.3); ETHYL ALCOHOL 245 mg/dl (0-30); GFR FOR AFR.AMER. > 60 ML/MIN (>=60 (CALC)); GFR OTHER RACES 57 ML/MIN (>=60 (CALC)); POTASSIUM 4.3 mmol/l (3.5-5.1); SGOT/AST 32 u/l (19-48); SODIUM 136 mmol/l (137-146)
[2023-09-23 20:33] LABS: ALBUMIN 4.6 g/dL (3.2-5.0); BILIRUBIN, TOTAL 0.8 mg/dL (0.2-1.3); TOTAL PROTEIN 7.9 g/dL (6.3-8.2)
[2023-09-24 00:31] VITALS: BP 133/72
== END 2023-09-24 00:31 | disposition home or self-care (01) ==
LOC: ED 19:55
PROVIDERS: Family Medicine
PROC: 0HQ1XZZ Repair Face Skin, External Approach (ICD-10-PCS; principal; 2023-09-23)
DX: S01.81XA Laceration without foreign body of other part of head, initial encounter (principal); I10 Essential (primary) hypertension; F10.129 Alcohol abuse with intoxication, unspecified; Y90.8 Blood alcohol level of 240 mg/100 ml or more; W07.XXXA Fall from chair, initial encounter; Y92.59 Other trade areas as the place of occurrence of the external cause; Z95.810 Presence of automatic (implantable) cardiac defibrillator